=== PATIENT | female | born 1980 | race Caucasian/White ===

== ENCOUNTER 2017-05-08 19:41 | Emergency (ER) | payer MEDICAID, OTHER ==
[~2017-05-08] VITALS: Ht 172.7 cm; Wt 81.3 kg
[~2017-05-08 19:41] MED LIST: ALBU17I INH; AMOX875 PO; CYAN100017 INJ; FLUC10S PO; MONT10TA2 PO; SYMB160A INH; TAB-TAB PO; TRIA3AER; ZYRT10TA12 PO
[2017-05-08 20:01] VITALS: BP 133/80; PULSE 93; RESP 16; TEMP 98.6; O2SAT 99
[2017-05-08] MEDS ORDERED: MONT10TA2 PO (20:13)
[2017-05-08] MEDS ORDERED: CETI10 PO (20:13)
[2017-05-08] MEDS ORDERED: VENTAER INH (20:13)
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
--- NOTE | 2017-05-08 20:38 | RADRPT ---
EXAM DATE/TIME: 05/08/2017 20:15 [place] COMPARISON: No previous studies available for comparison. INDICATIONS : Left hand, 4th digit pain. MEDICAL HISTORY : None. SURGICAL HISTORY : None. ENCOUNTER: Initial ACUITY: 1 day PAIN SCORE: 4/10 LOCATION: Left hand, 4th digit. FINDINGS: 1 x 3 mm minimally displaced avulsion fracture fragment is seen volar aspect of the base of the ring finger middle phalanx. Other bones of the ring finger are intact. No subluxations. CONCLUSION: Tiny, minimally displaced volar plate avulsion of the proximal interphalangeal joint. Tj Guaman MD on May 08, 2017 at 20:35 Board Certified Radiologist. This report was verified electronically.
== END 2017-05-08 21:00 | disposition home or self-care (01) ==
LOC: PHEFT 19:41
DX: S62.625A Displaced fracture of middle phalanx of left ring finger, initial encounter for closed fracture (principal); W50.1XXA Accidental kick by another person, initial encounter; Y92.838 Other recreation area as the place of occurrence of the external cause; Z79.899 Other long term (current) drug therapy
CPT/HCPCS: 73140; 99283